=== PATIENT | female | born 1955 | race Caucasian/White ===

== ENCOUNTER 2019-05-12 09:17 | Outpatient (CLI) | payer BC, SELFPAY ==
[2019-05-12 09:43] LABS: Basophils Percent Auto 0.4 % (0.2-1.2); Eosinophils Absolute Auto 0.2 K/mm3 (0-0.3); Eosinophils Percent Auto 4.8 % (0-4.4); Hematocrit 43.9 % (37.0-47.0); Hemoglobin 13.6 g/dL (12.0-15.0); Immature Granulocyte Absolute 0.02 K/mm3 (0.00-0.031); Immature Granulocyte Percent A 0.4 % (0-0.5); Lymphocytes Absolute Auto 1.76 K/mm3 (0.9-3.2); Lymphocytes Percent Auto 36.6 % (18.3-44.2); Mean Corpuscular Hemoglobin 23.2 pg (26-34); Mean Corpuscular Volume 74.8 fl (80-100); Mean Platelet Volume 9.3 fl (7.4-10.4); Monocytes Absolute Auto 0.3 K/mm3 (0.1-0.6); Monocytes Percent Auto 5.6 % (2.6-8.5); Neutrophils Absolute Auto 2.5 K/mm3 (1.3-6.7); Neutrophils Percent Auto 52.2 % (45.5-73.1); Platelet Count Result 286 k/mm3 (150-375); Red Blood Count 5.87 M/mm3 (4.2-5.4); Red Cell Distribution Width 16.6 % (11.5-14.5); White Blood Count 4.8 K/mm3 (4.5-10.0)
[2019-05-12 11:02] LABS: Iron 130 ug/dL (37-170)
[2019-05-12 11:03] LABS: Alanine Aminotransferase 22 U/L (4-35); Albumin Level 4.7 g/dL (3.5-5.1); Alkaline Phosphatase 96 U/L (38-126); Aspartate Amino Transferase 20 U/L (14-36); Bilirubin,Total 0.4 mg/dL (0.2-1.3); Blood Urea Nitrogen 16 mg/dL (7-17); Calcium 9.7 mg/dL (8.4-10.2); Carbon Dioxide 27 mmol/L (22-30); Chloride 101 mmol/L (98-107); Estimated Glomerular Filt Rate > 60; Glucose 101 mg/dL (65-105); Potassium 4.4 mmol/L (3.4-5.0); Sodium 137 mmol/L (137-145)
[2019-05-12 11:11] LABS: Percent Iron Saturation 37 % (20-50)
[2019-05-12 12:08] LABS: Folic Acid 16.3 ng/mL (2.76->20)
== END 2019-05-12 09:18 | disposition home or self-care (01) ==
LOC: ANHLAB 09:19
PROVIDERS: PCP Nurse Practitioner Adult Health; Visit Provider Internal Medicine Hematology & Oncology
DX: D72.1 Eosinophilia (principal); R71.8 Other abnormality of red blood cells; D50.9 Iron deficiency anemia, unspecified
CPT/HCPCS: 36415; 80053; 82607; 82728; 82746; 83540; 83550; 85025

== ENCOUNTER 2020-02-16 08:33 | Outpatient (CLI) | payer BC, SELFPAY ==
[2020-02-16 08:51] LABS: Basophils Percent Auto 0.5 % (0.2-1.2); Eosinophils Absolute Auto 0.2 K/mm3 (0-0.3); Eosinophils Percent Auto 3.6 % (0-4.4); Hematocrit 42.3 % (37.0-47.0); Hemoglobin 13.1 g/dL (12.0-15.0); Immature Granulocyte Absolute 0.01 K/mm3 (0.00-0.031); Immature Granulocyte Percent A 0.2 % (0-0.5); Lymphocytes Absolute Auto 1.76 K/mm3 (0.9-3.2); Lymphocytes Percent Auto 42.3 % (18.3-44.2); Mean Corpuscular Hemoglobin 22.8 pg (26-34); Mean Corpuscular Volume 73.6 fl (80-100); Mean Platelet Volume 9.4 fl (7.4-10.4); Monocytes Absolute Auto 0.3 K/mm3 (0.1-0.6); Monocytes Percent Auto 6.5 % (2.6-8.5); Neutrophils Percent Auto 46.9 % (45.5-73.1); Platelet Count Result 296 k/mm3 (150-375); Red Blood Count 5.75 M/mm3 (4.2-5.4); Red Cell Distribution Width 15.8 % (11.5-14.5); White Blood Count 4.2 K/mm3 (4.5-10.0)
[2020-02-16 12:27] LABS: Anion Gap 8 mmol/L (8-16); Blood Urea Nitrogen 11 mg/dL (7-17); Calcium 9.9 mg/dL (8.4-10.2); Carbon Dioxide 30 mmol/L (22-30); Chloride 100 mmol/L (98-107); Estimated Glomerular Filt Rate > 60; Glucose 101 mg/dL (65-105); Potassium 4.3 mmol/L (3.4-5.0); Sodium 138 mmol/L (137-145)
[2020-02-16 12:28] LABS: Iron 110 ug/dL (37-170)
[2020-02-16 12:38] LABS: Percent Iron Saturation 33 % (20-50)
== END 2020-02-16 08:34 | disposition home or self-care (01) ==
LOC: ANHLAB 08:34
PROVIDERS: PCP Nurse Practitioner Adult Health; Visit Provider Internal Medicine Hematology & Oncology
DX: D50.9 Iron deficiency anemia, unspecified (principal)
CPT/HCPCS: 36415; 80048; 82728; 83540; 83550; 85025

== ENCOUNTER 2021-02-19 08:40 | Outpatient (CLI) | payer BC, MEDICARE, SELFPAY ==
[2021-02-19 09:08] LABS: Basophils Percent Auto 0.4 % (0.2-1.2); Eosinophils Absolute Auto 0.3 K/mm3 (0-0.3); Eosinophils Percent Auto 5.8 % (0-4.4); Hematocrit 42.7 % (37.0-47.0); Hemoglobin 12.9 g/dL (12.0-15.0); Immature Granulocyte Absolute 0.01 K/mm3 (0.00-0.031); Immature Granulocyte Percent A 0.2 % (0-0.5); Lymphocytes Absolute Auto 2.05 K/mm3 (0.9-3.2); Lymphocytes Percent Auto 45.5 % (18.3-44.2); Mean Corpuscular HGB Conc 30.2 g/dl (32-36); Mean Corpuscular Hemoglobin 23.4 pg (26-34); Mean Corpuscular Volume 77.4 fl (80-100); Monocytes Absolute Auto 0.3 K/mm3 (0.1-0.6); Monocytes Percent Auto 7.1 % (2.6-8.5); Neutrophils Absolute Auto 1.9 K/mm3 (1.3-6.7); Platelet Count Result 320 k/mm3 (150-375); Red Blood Count 5.52 M/mm3 (4.2-5.4); Red Cell Distribution Width 15.9 % (11.5-14.5); White Blood Count 4.5 K/mm3 (4.5-10.0)
[2021-02-19 11:12] LABS: Iron 127 ug/dL (37-170)
[2021-02-19 11:24] LABS: Percent Iron Saturation 35 % (20-50)
[2021-02-19 11:25] LABS: Anion Gap 9 mmol/L (8-16); Blood Urea Nitrogen 17 mg/dL (7-17); Calcium 9.5 mg/dL (8.4-10.2); Carbon Dioxide 27 mmol/L (22-30); Chloride 102 mmol/L (98-107); Estimated Glomerular Filt Rate > 60; Glucose 106 mg/dL (65-110); Potassium 4.1 mmol/L (3.4-5.0); Sodium 138 mmol/L (137-145)
== END 2021-02-19 08:41 | disposition home or self-care (01) ==
PROVIDERS: PCP Nurse Practitioner Adult Health; Visit Provider Internal Medicine Hematology & Oncology
DX: D50.9 Iron deficiency anemia, unspecified (principal)
CPT/HCPCS: 36415; 80048; 82728; 83540; 83550; 85025

== ENCOUNTER 2022-09-17 01:55 | Day surgery (SDC) | payer MEDICARE, OTHER, SELFPAY ==
[2022-09-05 11:00] VITALS: BMI 27.9
[2022-09-17 07:28] VITALS: BP 138/69; PULSE 97; RESP 17; TEMP 36.1; O2SAT 99; BMI 27.0
[2022-09-17] MEDS: LACTATED RINGERS 1,000 ML 150 ML IV CONT (07:42)
[2022-09-17 07:44] LABS: Glucose Point of Care 114 mg/dl (65-105)
--- NOTE | 2022-09-17 08:11 | WPDANESEPPF ---
Anes - Initial Pre Proc Eval Procedure: Operation Date: 09/17/22 08:45 Proposed Procedures p Screening Colonoscopy - Mil Whitehead MD Date/Time: 09/17/22 08:11 Surgeon: Mil Whitehead MD Pre Op Diagnosis: neoplasm screening Patient Data Age: 66 Gender: F Height: 1.63 m Weight: 71.4 kg Last Vital Signs Temp 96.9 F L 09/17/22 07:28 Pulse 97 09/17/22 07:28 Resp 17 09/17/22 07:28 BP 138/69 09/17/22 07:28 Pulse Ox 99 09/17/22 07:28 O2 Del Method Room Air 09/17/22 07:28 Allergies Allergy/AdvReac Type Severity Reaction Status Date / Time No Known Allergies Allergy Mild Verified 09/17/22 07:26 Home Medications Medication Instructions Recorded Confirmed Type ezetimibe 10 mg tablet 10 mg PO DAILY 03/19/21 09/17/22 History metformin 500 mg tablet,extended 500 mg PO BID 03/19/21 09/17/22 History release 24 hr icosapent ethyl 1 gram capsule 2 g PO DAILY 09/05/22 09/17/22 History semaglutide 0.25 mg or 0.5 mg (2 0.5 mg subcut WEEKLY 09/05/22 09/17/22 History mg/3 mL) subcutaneous pen injector (Ozempic) Laboratory Tests 09/17/22 07:34 POC Capillary Glucose 114 H mg/dl (65-105) Patient hx anesthesia problems: none Family hx anesthesia problems: none Results Review: All pre-operative results and documents have been reviewed as part of the pre-operative evaluation. 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 Eczema Eczema Encounter for Papanicolaou smear for cervical cancer screening High blood cholesterol High cholesterol History of endometrial biopsy 12/11/11 atrophic endometrium History of endometrial biopsy (12/11/11) ENDOMETRIAL BX- ATROPHIC ENDOMETRIUM History of frequent headaches Normal colonoscopy 2015 Osteopenia Osteopenia Parathyroid disease Parathyroid disease Pneumonia 2007 Screening mammogram, encounter for Surgical History Surgical History H/O colonoscopy (02/17/15) normal History of tonsillectomy (~02/17/1961) Hx of cholecystectomy 2005 Hx of cholecystectomy (~02/17/05) Hx of tonsillectomy 1961 Family History Family History Mother Osteoporosis Breast cancer Sibling Osteoporosis sister Diabetes mellitus sister Pancreatic cancer sister-- Hyperthyroidism sister Sibling Pancreatic cancer sister Hyperthyroidism sister Diabetes mellitus sister Mother Breast cancer Hypertension Social History Social History Smoking status: Never smoker Alcohol intake: current Drinks per week: 3 Substance use: never Substance use type: does not use Living arrangements: with family Additional living arrangements comments: spouse Occupation/Education: retired Gender identity (if verbalized by the patient): Female Sexual Orientation (if Verbalized by the Patient): Straight or Heterosexual Spiritual care concerns: No Anes - Eval Final PreProcedure Day of Procedure 09/17/22 08:11 Patient weight: normal Heart: regular rate and rhythm Lungs: clear to auscultation Airway: Mallampati scale class II Neurological: alert and oriented Last oral intake: >/= 8 hours ASA classification: II Emergent: no Anesthetic plan: proceed Anesthesia type and monitoring: general GIVS and standard monitoring Results Review: All pre-operative results and documents have been reviewed as part of the pre-operative evaluation. Informed Consent: The patient's anesthetic plan and its attendant risks and benefits were discussed with the patient/family/POA. Questions were solicited and answers provided to the satisfaction of the patient/family/POA.
--- NOTE | 2022-09-17 08:17 | PM.HPGS ---
History of Present Illness History of Present Illness Consent: Risks, benefits, and alternatives have been discussed and questions answered. Patient agrees to proceed with procedure. Chief complaint: neoplasm screening Narrative: Sofia García is a 66 year old female Presents for screening colonoscopy. Patient's current weight appetite and bowel movements are normal. Patient denies abdominal pain. She has had no bleeding. Family history is significant both mother and sister have had colon polyps. Patient presents today for surveillance exam. Review of Systems Review of Systems: Review of systems noncontributory. 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 Eczema Eczema Encounter for Papanicolaou smear for cervical cancer screening High blood cholesterol High cholesterol History of endometrial biopsy 12/11/11 atrophic endometrium History of endometrial biopsy (12/11/11) ENDOMETRIAL BX- ATROPHIC ENDOMETRIUM History of frequent headaches Normal colonoscopy 2015 Osteopenia Osteopenia Parathyroid disease Parathyroid disease Pneumonia 2008 Screening mammogram, encounter for Surgical History Surgical History H/O colonoscopy (02/17/15) normal History of tonsillectomy (~02/17/1961) Hx of cholecystectomy 2005 Hx of cholecystectomy (~02/17/05) Hx of tonsillectomy 1961 Family History Family History Mother Osteoporosis Breast cancer Sibling Osteoporosis sister Diabetes mellitus sister Pancreatic cancer sister-- Hyperthyroidism sister Sibling Pancreatic cancer sister Hyperthyroidism sister Diabetes mellitus sister Mother Breast cancer Hypertension Social History Social History Smoking status: Never smoker Alcohol intake: current Drinks per week: 3 Substance use: never Substance use type: does not use Living arrangements: with family Additional living arrangements comments: spouse Occupation/Education: retired Gender identity (if verbalized by the patient): Female Sexual Orientation (if Verbalized by the Patient): Straight or Heterosexual Spiritual care concerns: No Meds Home Medications and Allergies Home Medications Medication Instructions Recorded Confirmed Type ezetimibe 10 mg tablet 10 mg PO DAILY 03/19/21 09/17/22 History metformin 500 mg tablet,extended 500 mg PO BID 03/19/21 09/17/22 History release 24 hr icosapent ethyl 1 gram capsule 2 g PO DAILY 09/05/22 09/17/22 History semaglutide 0.25 mg or 0.5 mg (2 0.5 mg subcut WEEKLY 09/05/22 09/17/22 History mg/3 mL) subcutaneous pen injector (Ozempic) Allergies Allergy/AdvReac Type Severity Reaction Status Date / Time No Known Allergies Allergy Mild Verified 09/17/22 07:26 Vital Signs Vital Signs - 24 hr 09/17/22 07:28 Temperature 96.9 F L Pulse Rate 97 Respiratory Rate 17 Blood Pressure 138/69 Pulse Oximetry 99 Oxygen Delivery Room Air Exam Narrative: Physical exam reveals patient be alert. Vital signs stable. HEENT exam is unremarkable. Patient is anicteric. Lungs are clear to auscultation and percussion. Heart is without murmur or extra sounds. Abdomen bowel sounds are present soft nontender with no organomegaly. Digital external rectal exam is normal. Assessment and Plan Assessment and plan (1) Family history of colonic polyps: Code(s): Z83.71 - Family history of colonic polyps Status: Acute Assessment and Plan: Patient's mother and sister both have had colon polyps. patient presents today for screening colonoscopy advised follow-up colonoscopy at 5-7 year intervals.
[2022-09-17 08:59] VITALS: BP 106/62; PULSE 92; RESP 25; O2SAT 95
[2022-09-17 09:09] VITALS: BP 113/66; PULSE 83; RESP 16; O2SAT 99
[2022-09-17 09:19] VITALS: BP 117/68; PULSE 72; RESP 22; O2SAT 99
== END 2022-09-17 09:22 | disposition home or self-care (01) ==
PROVIDERS: Referring Provider Internal Medicine Endocrinology, Diabetes & Metabolism; Visit Provider Internal Medicine Gastroenterology
PROC: 0DJD8ZZ Inspection of Lower Intestinal Tract, Via Natural or Artificial Opening Endoscopic (ICD-10-PCS; CPT 45378; principal; 2022-09-17 08:45)
DX: Z12.11 Encounter for screening for malignant neoplasm of colon (principal); K64.8 Other hemorrhoids; Z83.71 Family history of colonic polyps; Z79.84 Long term (current) use of oral hypoglycemic drugs; E11.9 Type 2 diabetes mellitus without complications; E78.00 Pure hypercholesterolemia, unspecified; Z79.899 Other long term (current) drug therapy
CPT/HCPCS: G0105; 82948; J2704; J7120

== ENCOUNTER 2023-06-17 14:43 | Outpatient (CLI) | payer MEDICARE, SELFPAY ==
[2023-06-17 19:39] LABS: Alanine Aminotransferase 39 U/L (6-35); Albumin Level 5.1 g/dL (3.5-5.1); Alkaline Phosphatase 81 U/L (38-126); Anion Gap 8 mmol/L (4-12); Aspartate Amino Transferase 59 U/L (14-36); Bilirubin,Total 0.9 mg/dL (0.2-1.3); Blood Urea Nitrogen 19 mg/dL (7-17); Calcium 9.8 mg/dL (8.4-10.2); Carbon Dioxide 25 mmol/L (22-30); Chloride 105 mmol/L (98-107); Cholesterol 292 mg/dL (0-200); Estimated Glomerular Filt Rate > 60; Glucose 92 mg/dL (65-110); HDL Direct 66 mg/dL; Potassium 3.9 mmol/L (3.4-5.0); Sodium 138 mmol/L (137-145); Triglycerides 206 mg/dL (<150)
[2023-06-17 19:50] LABS: LDL Cholesterol Direct 180 mg/dL
[2023-06-17 20:04] LABS: Creatinine Urine 197.8 mg/dL
[2023-06-17 20:09] LABS: MALB Creatinine Ratio 11.5 mg/g (0-30); Microalbumin Urine Random 22.8 mg/L (0-16.7)
[2023-06-17 20:17] LABS: Hemoglobin A1C 5.4 % (<5.7)
== END 2023-06-17 14:44 | disposition home or self-care (01) ==
PROVIDERS: PCP Nurse Practitioner Adult Health; Visit Provider Nurse Practitioner Adult Health
DX: E11.9 Type 2 diabetes mellitus without complications (principal)
CPT/HCPCS: 36415; 80053; 80061; 82043; 82565; 83036

== ENCOUNTER 2023-12-17 11:14 | Outpatient (CLI) | payer OTHER, SELFPAY ==
[2023-12-17 20:32] LABS: Alanine Aminotransferase 22 U/L (6-35); Albumin Level 4.8 g/dL (3.5-5.1); Alkaline Phosphatase 74 U/L (38-126); Anion Gap 8 mmol/L (4-12); Aspartate Amino Transferase 50 U/L (14-36); Bilirubin,Total 0.8 mg/dL (0.2-1.3); Blood Urea Nitrogen 18 mg/dL (7-17); Calcium 9.3 mg/dL (8.4-10.2); Carbon Dioxide 28 mmol/L (22-30); Chloride 101 mmol/L (98-107); Cholesterol 244 mg/dL (0-200); Estimated Glomerular Filt Rate > 60; Glucose 85 mg/dL (65-110); HDL Direct 62 mg/dL; Potassium 4.4 mmol/L (3.4-5.0); Sodium 137 mmol/L (137-145); Triglycerides 172 mg/dL (<150)
[2023-12-17 20:43] LABS: LDL Cholesterol Direct 131 mg/dL
[2023-12-17 20:57] LABS: Hemoglobin A1C 5.7 % (<5.7)
[2023-12-17 21:10] LABS: Creatinine Urine 77.3 mg/dL
[2023-12-17 21:14] LABS: MALB Creatinine Ratio 23.4 mg/g (0-30); Microalbumin Urine Random 18.1 mg/L (0-16.7)
== END 2023-12-17 11:15 | disposition home or self-care (01) ==
LOC: ANHBWCLAB 11:16
PROVIDERS: PCP Nurse Practitioner Adult Health; Visit Provider Nurse Practitioner Adult Health
DX: E11.9 Type 2 diabetes mellitus without complications (principal)
CPT/HCPCS: 36415; 80053; 80061; 82043; 82565; 83036

== ENCOUNTER 2024-06-17 11:26 | Outpatient (CLI) | payer OTHER, SELFPAY ==
[2024-06-17 20:54] LABS: Alanine Aminotransferase 28 U/L (6-35); Albumin Level 4.8 g/dL (3.5-5.1); Alkaline Phosphatase 83 U/L (38-126); Anion Gap 10 mmol/L (4-12); Aspartate Amino Transferase 43 U/L (14-36); Bilirubin,Total 0.9 mg/dL (0.2-1.3); Blood Urea Nitrogen 18 mg/dL (7-17); Calcium 9.5 mg/dL (8.4-10.2); Carbon Dioxide 28 mmol/L (22-30); Chloride 101 mmol/L (98-107); Cholesterol 283 mg/dL (0-200); Estimated Glomerular Filt Rate > 60; Glucose 94 mg/dL (65-110); HDL Direct 57 mg/dL; Potassium 4.5 mmol/L (3.4-5.0); Sodium 139 mmol/L (137-145); Triglycerides 174 mg/dL (<150)
[2024-06-17 21:04] LABS: LDL Cholesterol Direct 162 mg/dL
[2024-06-17 21:34] LABS: Hemoglobin A1C 5.7 % (<5.7)
[2024-06-17 22:21] LABS: Creatinine Urine 32.5 mg/dL
[2024-06-17 22:44] LABS: MALB Creatinine Ratio < 18.5 mg/g (0-30); Microalbumin Urine Random < 6.0 mg/L (0-16.7)
== END 2024-06-17 11:27 | disposition home or self-care (01) ==
LOC: ANHBWCLAB 11:27
PROVIDERS: PCP Nurse Practitioner Adult Health; Visit Provider Nurse Practitioner Adult Health
DX: E11.9 Type 2 diabetes mellitus without complications (principal)
CPT/HCPCS: 36415; 80053; 80061; 82043; 82565; 83036

== ENCOUNTER 2024-06-23 14:46 | Outpatient (CLI) | payer MEDICARE, OTHER, SELFPAY ==
--- NOTE | ~2024-06-23 | MM_ITS ---
EXAMINATION: MM screening luciana BI w davie HISTORY: Screening TECHNIQUE: Craniocaudal and mediolateral oblique 3-D tomosynthesis images were obtained and synthetic 2-D images were generated. CAD analysis was submitted and interpreted. COMPARISON: No prior mammogram is available for comparison at this institution. BREAST PARENCHYMAL COMPOSITION: Dense: The breasts are heterogeneously dense, which may obscure small masses FINDINGS: There is no evidence of suspicious mass, calcification, or architectural distortion to sugg est malignancy in either breast. There has been no suspicious interval change. IMPRESSION: 1. No mammographic evidence of malignancy. 2. Recommend routine screening mammography in one year. BI-RADS Category 1: Negative Reviewed, dictated and finalized at location A.
--- OUTSIDE RECORDS SUMMARY | 2024-06-23 14:51 | XMS_ITS | Continuity of Care Document ---
Author Name [facility] Organization [facility] Care Team Providers Care Electrical Continuity Tester Name Role Phone [facility] Unavailable Unavailable Medications Combined list of outpatient medications from [facility] and [facility] facilities.Medications provided include 1) outpatient medications from the last 15 months, and 2) patient-reported medications. Medication Details Route Status Patient Instructions Prescription Expires Prescription Number Last Dispense Date Ordering Provider Order Date Order Qty Source ICOSAPENT ETHYL (icosapent ethyl), 1 G, CAPSULE, ORAL, Kidos, 120 ea. BOTTLE Active [id number] 2023 360 Pharmac y Data Transac tion Service Facilit y Social History Combined list of available smoking, tobacco, and other social history from Department of Defense and Veterans Affairs facilities. Social History Type Response Date Comment Sourc e This section is an empty social history section. [facility]
--- OUTSIDE RECORDS SUMMARY | 2024-06-23 14:51 | XMS_ITS | Data Portability ---
Author Organization [place] [facility], Main Office Address [address] [place] [address] Assessment No assessment recorded. Plan of Treatment Reminders Order Date Submit Date Provider Last Modified By Organization Details Last Modified Time Details Appointments None recorded. Lab TSH, serum or plasma 2022 023 JOSSELINE Not available 3 16:31:35 T4, free, serum 2022 023 JOSSELINE Not available 3 15:13:16 lipid panel, serum 2022 023 JOSSELINE Not available 3 15:14:13 CMP, serum or plasma 2022 023 JOSSELINE Not available 3 15:13:52 HbA1c (hemoglobin A1c), blood 2022 023 Not available 3 11:47:28 microalbumi n/creatinin e, mass ratio, urine 2022 023 [email or web address] Not available 3 11:47:29 Referral gastroenter ologist referral 2022 023 JOSSELINE Whitehead MD, [address] [facility] [address], [place], [address], 3 09:31:26 Procedures None recorded. Surgeries None recorded. Imaging MAMMO, screening, digital, bilateral 2022 023 JOSSELINE Not available 4 16:08:04 Medication Orders bempedoic acid 180 mg tablet 2022 023 [facility], [address] [place] [address], [address], 3 09:41:33 icosapent ethyl 1 gram capsule 2022 023 [facility], [address] [place] [address], [address], 3 09:42:38 ezetimibe 10 mg tablet 2022 023 [facility], [address] [place] [address], [address], 3 09:42:36 Ozempic 0.25 mg or 0.5 mg (2 mg/3 mL) subcutaneou s pen injector 2022 023 [facility], [address] [place] [address], [address], 3 09:41:33 metformin ER 500 mg tablet,exte nded release 24 hr 2022 023 [facility], [address] [place] [address], [address], 3 09:42:36 icosapent ethyl 1 gram capsule 2022 023 [place] [facility] #[id number], [address] [place], [id number], 3 11:50:07 ezetimibe 10 mg tablet 2022 023 [place] [facility] #[id number], [address] [place], [id number], 3 11:50:05 metformin ER 500 mg tablet,exte nded release 24 hr 2022 023 [place] [facility] #[id number], [address] [place], [id number], 3 11:50:08 Patient TargetsNo targets recorded. Patient InstructionsNo instructions recorded. Reason for Referral [employer] Supervisor Referral for Screening for malignant neoplasm of colon Referring Physician: Kalani Buchanan, Endocrinology, Encounter Date: 07/04/2022 Results Created Date Observation Date Name Description Value Unit Range Abnormal Flag Note LastModifiedBy Organization Detail LastModifiedTime 07/25/19 22 07/24/2021 HEMOG LOBIN A1C HA1C 5.7 % 4.0-6. 0 Diabe janett Scree heather Crite mary: <5.7% Consi stent with absen ce of diabe janett 5.7-6 .4% Consi stent with incre ased risk for diabe janett (pred iabet es) >OR=6 .5% Consi stent with diabe janett REFER ENCE: Diabe janett Care 2016, 39(Isaacs ppl.1 ):s13 -s22 Not Available [facility] (Lab) [address] [place], [address], 07/24/2021 15:29:18 07/25/19 22 07/24/2021 TSH thyroid-stim ulating hormone 1.600 uIU/m L 0.465- 4.680 Not Available [facility] (Lab) [address] [place], [address], 07/24/2021 14:05:37 07/25/19 22 07/24/2021 LIPID PANEL cholesterol 208 mg/dL 140-19 9 high NIH COMFORT NSUS RECOM MENDA TION FOR JONATHAN STERO L: ADULT CHILD LOW RISK: <200 <170 BORDE RLINE : <200- 239 ----- HIGH RISK: >240 >200 Not Available [facility] (Lab) [address] [place], [address], 07/24/2021 14:04:12 07/25/19 22 07/24/2021 LIPID PANEL triglyceride s 170 mg/dL 0-150 high NIH COMFORT NSUS REPOR T RECOM MENDA TION FOR TRIGL YCERI JEFF: ADULT CHILD LOW RISK: <150 ----- BODER LINE: 150-1 99 ----- HIGH RISK: >200 ----- Not Available [facility] (Lab) [address] [place], [address], 07/24/2021 14:04:12 07/25/19 22 07/24/2021 LIPID PANEL HDL cholesterol 54 mg/dL 40- Not Available [facility] (Lab) [address] [place], [address], 07/24/2021 14:04:12 07/25/19 22 07/24/2021 LIPID PANEL LDL cholesterol, calculated 120 mg/dL 0-130 NIH COMFORT NSUS REPOR T RECOM MENDA TIONS FOR LDL: ADULT CHILD LOW RISK <130 <110 (OPTI MAL LDL) <100 ----- BORDE RLINE : 130-1 59 ----- HIGH RISK: >160 >130 A TRIGL YCERI DE RESUL T >400 INVAL IDATE S THE CALCU LATIO N FOR LDL FRACT IONAT ION - THE LDL RESUL T WILL NOT BE REPOR PHUC. Not Available [facility] (Lab) [address] [place], [address], 07/24/2021 14:04:12 07/25/19 22 07/24/2021 COMPR EHENS KAREEM METAB OLIC PANEL chloride 104 mmol/ L 98-107 Not Available [facility] (Lab) [address] [place], [address], 07/24/2021 14:04:09 07/25/19 22 07/24/2021 COMPR EHENS KAREEM METAB OLIC PANEL sodium 138 mmol/ L 137-14 5 Not Available [facility] (Lab) [address] [place], [address], 07/24/2021 14:04:09 07/25/19 22 07/24/2021 COMPR EHENS KAREEM METAB OLIC PANEL potassium 4.0 mmol/ L 3.5-5. 1 Not Available [facility] (Lab) [address] [place], [address], 07/24/2021 14:04:09 07/25/19 22 07/24/2021 COMPR EHENS KAREEM METAB OLIC PANEL BUN 15 mg/dL 8-19 Not Available [facility] (Lab) [address] [place], [address], 07/24/2021 14:04:09 07/25/19 22 07/24/2021 COMPR EHENS KAREEM METAB OLIC PANEL carbon dioxide 27 mmol/ L 22-30 Not Available [facility] (Lab) [address] [place], [address], 07/24/2021 14:04:09 07/25/19 22 07/24/2021 COMPR EHENS KAREEM METAB OLIC PANEL anion gap 11.0 mmol/ L 14-22 low Not Available [facility] (Lab) [address] [place], [address], 07/24/2021 14:04:09 07/25/19 22 07/24/2021 COMPR EHENS KAREEM METAB OLIC PANEL glucose 87 mg/dL 70-99 Not Available [facility] (Lab) [address] [place], [address], 07/24/2021 14:04:09 07/25/19 22 07/24/2021 COMPR EHENS KAREEM METAB OLIC PANEL creatinine 0.73 mg/dL 0.66-1 .25 Not Available [facility] (Lab) [address] [place], [address], 07/24/2021 14:04:09 07/25/19 22 07/24/2021 COMPR EHENS KAREEM METAB OLIC PANEL GFR >60 Refer ence Range : Logan ge GFR Healt hy Adult : >60 mL/mi n/1.7 3 m2 Chron ic Kidne y Disea se: 15-60 mL/mi n/1.7 3 m2 Kidne y Failu re: <15/m L/min /1.73 m2 www.n iddk. nih.g ov The MDRD study equat ion has not been valid ated in child tamie <18 years of age; pregn ant women ; the elder ly >85 years of age; or in some racia l or ethni c subgr oups, such as Hispa nics. Outsi de the valid ated minh eters , estim ated GFR is less accur ate, requi ring clini lane judgm ent on a case- by-ca se basis . Clini lane inter preta tion for other races and ages must be made by the clini julio cesar. The MDRD study equat ion has not been valid ated for the evalu ation of serum creat inine relat ed to nutri marin l statu s or medic ation usage . For perso ns <18 years of age, a pedia tric GFR calcu lator is avail able on the [facility] websi te: https :[email or web address] [email or web address] [email or web address] rg/pr ofess ional s/kdo qi/gf r_cal culat or Not Available [facility] (Lab) [address] [place], [address], 07/24/2021 14:04:09 07/25/19 22 07/24/2021 COMPR EHENS KAREEM METAB OLIC PANEL alkaline phosphatase 60 U/L 38-126 Not Available [facility] (Lab) [address] [place], [address], 07/24/2021 14:04:09 07/25/19 22 07/24/2021 COMPR EHENS KAREEM METAB OLIC PANEL alanine aminotransfe rase 19 U/L 0-35 Not Available [facility] (Lab) [address] [place], [address], 07/24/2021 14:04:09 07/25/19 22 07/24/2021 COMPR EHENS KAREEM METAB OLIC PANEL aspartate aminotransfe rase 23 U/L 15-37 Not Available [facility] (Lab) [address] [facility] [place], [address], 07/24/2021 14:04:09 07/25/19 22 07/24/2021 COMPR EHENS KAREEM METAB OLIC PANEL bilirubin, total 0.60 mg/dL 0.20-1 .30 Not Available [facility] (Lab) [address] [place], [address], 07/24/2021 14:04:09 07/25/19 22 07/24/2021 COMPR EHENS KAREEM METAB OLIC PANEL calcium 9.4 mg/dL 8.4-10 .2 Not Available [facility] (Lab) [address] [place], [address], 07/24/2021 14:04:09 07/25/19 22 07/24/2021 COMPR EHENS KAREEM METAB OLIC PANEL total protein 6.8 g/dL 6.3-8. 2 Not Available [facility] (Lab) [address] [place], [address], 07/24/2021 14:04:09 07/25/19 22 07/24/2021 COMPR EHENS KAREEM METAB OLIC PANEL albumin 4.5 g/dL 3.0-4. 4 high Not Available [facility] (Lab) [address] [place], [address], 07/24/2021 14:04:09 07/25/19 22 07/24/2021 COMPR EHENS KAREEM METAB OLIC PANEL globulin 2.3 g/dL 2.6-4. 2 low Not Available [facility] (Lab) [address] [facility] [place], [address], 07/24/2021 14:04:09 07/25/19 22 07/24/2021 COMPR EHENS KAREEM METAB OLIC PANEL A/G ratio 2.0 ratio 1.0-2. 0 Not Available [facility] (Lab) [address] [place], [address], 07/24/2021 14:04:09 07/25/19 22 07/24/2021 T4 FREE free T4 1.43 NG/dL 0.78-2 .19 Not Available [facility] (Lab) [address] [place], [address], 07/24/2021 14:03:10 07/25/19 22 07/24/2021 MICRO ALBUM N RNDM W/CRE AT RATIO ur creat 241.13 mg/dL REFER ENCE RANGE NOT ESTAB LISHE D FOR RANDO M URINE CREAT ININE Not Available [facility] (Lab) [address] [place], [address], 07/24/2021 13:25:56 07/25/19 22 07/24/2021 MICRO ALBUM N RNDM W/CRE AT RATIO microalbumin , urine 25.5 mg/L 0.0-16 .6 high Not Available [facility] (Lab) [address] [place], [address], 07/24/2021 13:25:56 07/25/19 22 07/24/2021 MICRO ALBUM N RNDM W/CRE AT RATIO microalbumin /creatinine ratio 11 mcg/m g 0-29 THE AMERI CAN DIABE JANETT ASSOC IATIO N DEFIN ES ABNOR MALIT IES IN ALBUM IN EXCRE TION FOLLO WS: CATEG ORY RESUL T (MCG/ MG CREAT ININE ) LUIS ENRIQUE L <30 MICRO ALBUM INURI A 30-[address] ALBUM INURI A > OR = 300 THE ADA RECOM MENDS THAT 2 OF 2 SPECI MENS COLLE CTED WITHI N A 3- TO 6-MON TH PERIO D BE ABNOR MAL BEFOR E CONSI ARIA G A PATIE NT TO HAVE CROSS ED ONE OF THESE DIAGN OSTIC THRES HOLDS . REFER ENCE: DIABE JANETT CARE, VOL. 26: S94-S , 2002 Not Available [facility] (Lab) [address] [place], [address], 07/24/2021 13:25:56 12/15/19 22 12/14/2021 LIPID PANEL LDL cholesterol, calculated 143 mg/dL 0-130 high NIH COMFORT NSUS REPOR T RECOM MENDA TIONS FOR LDL: ADULT CHILD LOW RISK <130 <110 (OPTI MAL LDL) <100 ----- BORDE RLINE : 130-1 59 ----- HIGH RISK: >160 >130 A TRIGL YCERI DE RESUL T >400 INVAL IDATE S THE CALCU LATIO N FOR LDL FRACT IONAT ION - THE LDL RESUL T WILL NOT BE REPOR PHUC. Not Available [facility] (Lab) [address] [place], [address], 12/14/2021 13:20:14 12/15/1912/14/2021 LIPID PANEL cholesterol 229 mg/dL 140-19 9 high NIH COMFORT NSUS RECOM MENDA TION FOR JONATHAN STERO L: ADULT CHILD LOW RISK: <200 <170 BORDE RLINE : <200- 239 ----- HIGH RISK: >240 >200 Not Available [facility] (Lab) [address] [place], [address], 12/14/2021 13:20:14 12/15/1912/14/2021 LIPID PANEL triglyceride s 161 mg/dL 0-150 high NIH COMFORT NSUS REPOR T RECOM MENDA TION FOR TRIGL YCERI JEFF: ADULT CHILD LOW RISK: <150 ----- BODER LINE: 150-1 99 ----- HIGH RISK: >200 ----- Not Available [facility] (Lab) [address] [place], [address], 12/14/2021 13:20:14 12/15/1912/14/2021 LIPID PANEL HDL cholesterol 54 mg/dL 40- Not Available [facility] (Lab) [address] [place], [address], 12/14/2021 13:20:14 12/15/19 22 12/14/2021 HEMOG LOBIN A1C HA1C 5.5 % 4.0-6. 0 Diabe janett Scree heather Crite mary: <5.7% Consi stent with absen ce of diabe janett 5.7-6 .4% Consi stent with incre ased risk for diabe janett (pred iabet es) >OR=6 .5% Consi stent with diabe janett REFER ENCE: Diabe janett Care 2016, 39( ppl.1 ):s13 -s22 Not Available [facility] (Lab) [address] [place], [address], 12/14/2021 14:27:02 12/15/19 22 12/14/2021 TSH thyroid-stim ulating hormone 0.209 uIU/m L 0.465- 4.680 low Not Available [facility] (Lab) [address] [place], [address], 12/14/2021 13:55:03 12/15/1912/14/2021 T4 FREE free T4 1.62 NG/dL 0.78-2 .19 Not Available [facility] (Lab) [address] [place], [address], 12/14/2021 13:37:00 12/15/19 22 12/14/2021 COMPR EHENS KAREEM METAB OLIC PANEL chloride 104 mmol/ L 98-107 Not Available [facility] (Lab) [address] [place], [address], 12/14/2021 13:20:12 12/15/19 22 12/14/2021 COMPR EHENS KAREEM METAB OLIC PANEL sodium 139 mmol/ L 137-14 5 Not Available [facility] (Lab) [address] [place], [address], 12/14/2021 13:20:12 12/15/19 22 12/14/2021 COMPR EHENS KAREEM METAB OLIC PANEL potassium 5.0 mmol/ L 3.5-5. 1 Not Available [facility] (Lab) [address] [place], [address], 12/14/2021 13:20:12 12/15/19 22 12/14/2021 COMPR EHENS KAREEM METAB OLIC PANEL carbon dioxide 31 mmol/ L 22-30 high Not Available [facility] (Lab) [address] [place], [address], 12/14/2021 13:20:12 12/15/19 22 12/14/2021 COMPR EHENS KAREEM METAB OLIC PANEL anion gap 9.0 mmol/ L 14-22 low Not Available [facility] (Lab) [address] [place], [address], 12/14/2021 13:20:12 12/15/19 22 12/14/2021 COMPR EHENS KAREEM METAB OLIC PANEL glucose 87 mg/dL 70-99 Not Available [facility] (Lab) [address] [place], [address], 12/14/2021 13:20:12 12/15/19 22 12/14/2021 COMPR EHENS KAREEM METAB OLIC PANEL BUN 15 mg/dL 8-19 Not Available [facility] (Lab) [address] [place], [address], 12/14/2021 13:20:12 12/15/19 22 12/14/2021 COMPR EHENS KAREEM METAB OLIC PANEL creatinine 0.61 mg/dL 0.66-1 .25 low Not Available [facility] (Lab) [address] [place], [address], 12/14/2021 13:20:12 12/15/19 22 12/14/2021 COMPR EHENS KAREEM METAB OLIC PANEL aspartate aminotransfe rase 20 U/L 15-37 Not Available [facility] (Lab) [address] [place], [address], 12/14/2021 13:20:12 10/28/12/14/2021 COMPR EHENS KAREEM METAB OLIC PANEL GFR >60 Refer ence Range : Logan ge GFR Healt hy Adult : >60 mL/mi n/1.7 3 m2 Chron ic Kidne y Disea se: 15-60 mL/mi n/1.7 3 m2 Kidne y Failu re: <15/m L/min /1.73 m2 www.n iddk. nih.g ov The MDRD study equat ion has not been valid ated in child tamie <18 years of age; pregn ant women ; the elder ly >85 years of age; or in some racia l or ethni c subgr oups, such as Hispa nics. Outsi de the valid ated minh eters , estim ated GFR is less accur ate, requi ring clini lane judgm ent on a case- by-ca se basis . Clini lane inter preta tion for other races and ages must be made by the clini julio cesar. The MDRD study equat ion has not been valid ated for the evalu ation of serum creat inine relat ed to nutri marin l statu s or medic ation usage . For perso ns <18 years of age, a pedia tric GFR calcu lator is avail able on the [facility] websi te: https :[email or web address] [email or web address].bismark [email or web address]/dede luna s/kdo qi/gf r_cal culat or Not Available [facility] (Lab) [address] [place], [address], 12/14/2021 13:20:12 12/15/19 22 12/14/2021 COMPR EHENS KAREEM METAB OLIC PANEL alkaline phosphatase 69 U/L 38-126 Not Available [facility] (Lab) [address] [place], [address], 12/14/2021 13:20:12 12/15/19 22 12/14/2021 COMPR EHENS KAREEM METAB OLIC PANEL alanine aminotransfe rase 18 U/L 0-35 Not Available [facility] (Lab) [address] [place], [address], 12/14/2021 13:20:12 12/15/19 22 12/14/2021 COMPR EHENS KAREEM METAB OLIC PANEL bilirubin, total 0.70 mg/dL 0.20-1 .30 Not Available [facility] (Lab) [address] [place], [address], 12/14/2021 13:20:12 12/15/19 22 12/14/2021 COMPR EHENS KAREEM METAB OLIC PANEL calcium 9.5 mg/dL 8.4-10 .2 Not Available [facility] (Lab) [address] [place], [address], 12/14/2021 13:20:12 12/15/19 22 12/14/2021 COMPR EHENS KAREEM METAB OLIC PANEL total protein 7.0 g/dL 6.3-8. 2 Not Available [facility] (Lab) [address] [place], [address], 12/14/2021 13:20:12 12/15/19 22 12/14/2021 COMPR EHENS KAREEM METAB OLIC PANEL albumin 4.5 g/dL 3.0-4. 4 high Not Available [facility] (Lab) [address] [place], [address], 12/14/2021 13:20:12 12/15/19 22 12/14/2021 COMPR EHENS KAREEM METAB OLIC PANEL globulin 2.5 g/dL 2.6-4. 2 low Not Available [facility] (Lab) [address] [place], [address], 12/14/2021 13:20:12 12/15/19 22 12/14/2021 COMPR EHENS KAREEM METAB OLIC PANEL A/G ratio 1.8 ratio 1.0-2. 0 Not Available [facility] (Lab) [address] [place], [address], 12/14/2021 13:20:12 12/15/19 22 12/14/2021 MICRO ALBUM N RNDM W/CRE AT RATIO ur creat 117.09 mg/dL REFER ENCE RANGE NOT ESTAB LISHE D FOR RANDO M URINE CREAT ININE Not Available [facility] (Lab) [address] [place], [address], 12/14/2021 13:13:33 12/15/19 22 12/14/2021 MICRO ALBUM N RNDM W/CRE AT RATIO microalbumin , urine 9.0 mg/L 0.0-16 .6 Not Available [facility] (Lab) [address] [place], [address], 12/14/2021 13:13:33 12/15/19 22 12/14/2021 MICRO ALBUM N RNDM W/CRE AT RATIO microalbumin /creatinine ratio 8 mcg/m g 0-29 THE AMERI CAN DIABE JANETT ASSOC IATIO N DEFIN ES ABNOR MALIT IES IN ALBUM IN EXCRE TION FOLLO WS: CATEG ORY RESUL T (MCG/ MG CREAT ININE ) LUIS ENRIQUE L <30 MICRO ALBUM INURI A 30-[address] ALBUM INURI A > OR = 300 THE ADA RECOM MENDS THAT 2 OF 2 SPECI MENS COLLE CTED WITHI N A 3- TO 6-MON TH PERIO D BE ABNOR MAL BEFOR E CONSI ARIA G A PATIE NT TO HAVE CROSS ED ONE OF THESE DIAGN OSTIC THRES HOLDS . REFER ENCE: DIABE JANETT CARE, VOL. 26: S94-S 96, FEBUA 2002 Not Available [facility] (Lab) [address] [place], [address], 12/14/2021 13:13:33 01/26/20 22 01/31/2022 IODIN E, SERUM /PLAS MA iodine, serum/plasma 1026.7 ug/L 40.0-9 2.0 high Limit of quant itati on = 20 Perfo rmed at: [facility] [place] [address] [facility] , [place] [address] Lab Direc tor: Susie wren MD, Phone : [phone] Not Available [facility] (Lab) [address] [place], [address], 01/31/2022 10:11:34 01/26/20 22 01/29/2022 THYRO ID STIM IMMUN OGLOB ULIN thyroid stim immunoglobul in <0.10 IU/L 0.00-0 .55 Perfo rmed at: - [facility] [address] [address] Lab Direc tor: Susie wren MD, Phone : [phone] Not Available [facility] (Lab) [address] [place], [address], 01/29/2022 15:09:24 01/26/20 22 01/27/2022 THYRO ID PEROX IDASE (TPO) AB thyroid peroxidase (tpo) Ab 13 IU/mL 0-34 Perfo rmed at: - [facility] [address] [id number] Lab Direc tor: Jhonny dixon PhD, Phone : [phone] Not Available [facility] (Lab) [address] [place], [address], 01/27/2022 06:40:48 01/26/20 22 01/25/2022 TSH thyroid-stim ulating hormone 1.060 uIU/m L 0.465- 4.680 Not Available [facility] (Lab) [address] [place], [address], 01/25/2022 19:38:35 01/26/20 22 01/25/2022 T4 FREE free T4 1.32 NG/dL 0.78-2 .19 Not Available [facility] (Lab) [address] [place], [address], 01/25/2022 19:13:05 06/25/19 23 06/24/2022 MICRO ALBUM N RNDM W/CRE AT RATIO ur creat 50.65 mg/dL REFER ENCE RANGE NOT ESTAB LISHE D FOR RANDO M URINE CREAT ININE Not Available [facility] (Lab) [address] [place], [address], 06/24/2022 12:43:29 06/25/19 23 06/24/2022 MICRO ALBUM N RNDM W/CRE AT RATIO microalbumin , urine <6.0 mg/L 0.0-16 .6 Not Available [facility] (Lab) [address] [place], [address], 06/24/2022 12:43:29 06/25/19 23 06/24/2022 COMPR EHENS KAREEM METAB OLIC PANEL sodium 137 mmol/ L 137-14 5 Not Available [facility] (Lab) [address] [place], [address], 06/24/2022 12:35:23 06/25/19 23 06/24/2022 COMPR EHENS KAREEM METAB OLIC PANEL potassium 4.2 mmol/ L 3.5-5. 1 Not Available [facility] (Lab) [address] [place], [address], 06/24/2022 12:35:23 06/25/19 23 06/24/2022 COMPR EHENS KAREEM METAB OLIC PANEL chloride 103 mmol/ L 98-107 Not Available [facility] (Lab) [address] [place], [address], 06/24/2022 12:35:23 06/25/19 23 06/24/2022 COMPR EHENS KAREEM METAB OLIC PANEL carbon dioxide 24 mmol/ L 22-30 Not Available [facility] (Lab) [address] [place], [address], 06/24/2022 12:35:23 06/25/19 23 06/24/2022 COMPR EHENS KAREEM METAB OLIC PANEL anion gap 14.2 mmol/ L 14-22 Not Available [facility] (Lab) [address] [place], [address], 06/24/2022 12:35:23 06/25/1906/24/2022 COMPR EHENS KAREEM METAB OLIC PANEL glucose 90 mg/dL 70-99 Not Available [facility] (Lab) [address] [place], [address], 06/24/2022 12:35:23 06/25/1906/24/2022 COMPR EHENS KAREEM METAB OLIC PANEL BUN 12 mg/dL 8-19 Not Available [facility] (Lab) [address] [place], [address], 06/24/2022 12:35:23 06/25/1906/24/2022 COMPR EHENS KAREEM METAB OLIC PANEL creatinine 0.63 mg/dL 0.66-1 .25 low Not Available [facility] (Lab) [address] [place], [address], 06/24/2022 12:35:23 06/25/1906/24/2022 COMPR EHENS KAREEM METAB OLIC PANEL GFR >60 Refer ence Range : Logan ge GFR Healt hy Adult : >60 mL/mi n/1.7 3 m2 Chron ic Kidne y Disea se: 15-60 mL/mi n/1.7 3 m2 Kidne y Failu re: <15/m L/min /1.73 m2 www.n iddk. nih.g ov The MDRD study equat ion has not been valid ated in child tamie <18 years of age; pregn ant women ; the elder ly >85 years of age; or in some racia l or ethni c subgr oups, such as Hispa nics. Outsi de the valid ated minh eters , estim ated GFR is less accur ate, requi ring clini lane judgm ent on a case- by-ca se basis . Clini lane inter preta tion for other races and ages must be made by the clini julio cesar. The MDRD study equat ion has not been valid ated for the evalu ation of serum creat inine relat ed to nutri marin l statu s or medic ation usage . For perso ns <18 years of age, a pedia tric GFR calcu lator is avail able on the [facility] websi te: https :[email or web address] w.[email or web address] [email or web address] rg/pr ofess ional s/kdo qi/gf r_cal culat or Not Available [facility] (Lab) [address] [place], [address], 06/24/2022 12:35:23 06/25/19 23 06/24/2022 COMPR EHENS KAREEM METAB OLIC PANEL alkaline phosphatase 114 U/L 38-126 Not Available [facility] (Lab) [address] [place], [address], 06/24/2022 12:35:23 06/25/19 23 06/24/2022 COMPR EHENS KAREEM METAB OLIC PANEL alanine aminotransfe rase 23 U/L 0-35 Not Available [facility] (Lab) [address] [place], [address], 06/24/2022 12:35:23 06/25/19 23 06/24/2022 COMPR EHENS KAREEM METAB OLIC PANEL aspartate aminotransfe rase 37 U/L 15-37 Not Available [facility] (Lab) [address] [place], [address], 06/24/2022 12:35:23 06/25/19 23 06/24/2022 COMPR EHENS KAREEM METAB OLIC PANEL bilirubin, total 0.80 mg/dL 0.20-1 .30 Not Available [facility] (Lab) [address] [place], [address], 06/24/2022 12:35:23 06/25/19 23 06/24/2022 COMPR EHENS KAREEM METAB OLIC PANEL calcium 9.2 mg/dL 8.4-10 .2 Not Available [facility] (Lab) [address] [place], [address], 06/24/2022 12:35:23 06/25/1906/24/2022 COMPR EHENS KAREEM METAB OLIC PANEL total protein 6.7 g/dL 6.3-8. 2 Not Available [facility] (Lab) [address] [place], [address], 06/24/2022 12:35:23 06/25/19 23 06/24/2022 COMPR EHENS KAREEM METAB OLIC PANEL albumin 4.3 g/dL 3.0-4. 4 Not Available [facility] (Lab) [address] [place], [address], 06/24/2022 12:35:23 06/25/19 23 06/24/2022 COMPR EHENS KAREEM METAB OLIC PANEL globulin 2.4 g/dL 2.6-4. 2 low Not Available [facility] (Lab) [address] [place], [address], 06/24/2022 12:35:23 06/25/1906/24/2022 COMPR EHENS KAREEM METAB OLIC PANEL A/G ratio 1.8 ratio 1.0-2. 0 Not Available [facility] (Lab) [address] [place], [address], 06/24/2022 12:35:23 06/25/1906/24/2022 LIPID PANEL cholesterol 225 mg/dL 140-19 9 high NIH COMFORT NSUS RECOM MENDA TION FOR JONATHAN STERO L: ADULT CHILD LOW RISK: <200 <170 BORDE RLINE : <200- 239 ----- HIGH RISK: >240 >200 Not Available [facility] (Lab) [address] [place], [address], 06/24/2022 12:35:26 06/25/19 23 06/24/2022 LIPID PANEL triglyceride s 231 mg/dL 0-150 high NIH COMFORT NSUS REPOR T RECOM MENDA TION FOR TRIGL YCERI JEFF: ADULT CHILD LOW RISK: <150 ----- BODER LINE: 150-1 99 ----- HIGH RISK: >200 ----- Not Available [facility] [facility] ([facility] [address] [place], [address], 06/24/2022 12:35:26 06/25/1906/24/2022 LIPID PANEL HDL cholesterol 56 mg/dL 40- Not Available [facility] (Lab) [address] [place], [address], 06/24/2022 12:35:26 06/25/1906/24/2022 LIPID PANEL LDL cholesterol, calculated 123 mg/dL 0-130 NIH COMFORT NSUS REPOR T RECOM MENDA TIONS FOR LDL: ADULT CHILD LOW RISK <130 <110 (OPTI MAL LDL) <100 ----- JACQUI RLINE : 130-1 59 ----- HIGH RISK: >160 >130 A TRIGL YCERI DE RESUL T >400 INVAL IDATE S THE CALCU LATIO N FOR LDL FRACT IONAT ION - THE LDL RESUL T WILL NOT BE REPOR PHUC. Not Available [facility] (Lab) [address] [place], [address], 06/24/2022 12:35:26 06/25/1906/24/2022 HEMOG LOBIN A1C HA1C 5.9 % 4.0-6. 0 Diabe janett Scree heather Crite mary: <5.7% Consi stent with absen ce of diabe janett 5.7-6 .4% Consi stent with incre ased risk for diabe janett (pred iabet es) >OR=6 .5% Consi stent with diabe janett REFER ENCE: Diabe janett Care 2016, 39(Isaacs ppl.1 ):s13 -s22 Not Available [facility] (Lab) [address] [place], [address], 06/24/2022 14:43:08 10/31/1910/30/2022 HEMOG LOBIN A1C HA1C 5.7 % 4.0-6. 0 Diabe janett Fredericke heather Crite mary: <5.7% Consi stent with absen ce of diabe janett 5.7-6 .4% Consi stent with incre ased risk for diabe janett (pred iabet es) >OR=6 .5% Consi stent with diabe janett REFER ENCE: Diabe janett Care 2016, 39(Isaacs ppl.1 ):s13 -s22 Not Available [facility] (Lab) [address] [place], [address], 10/30/2022 14:17:53 10/31/1910/30/2022 MICRO ALBUM N RNDM W/CRE AT RATIO ur creat 182.24 mg/dL REFER ENCE RANGE NOT ESTAB LISHE D FOR RANDO M URINE CREAT ININE Not Available [facility] (Lab) [address] [place], [address], 10/30/2022 14:40:17 10/31/19 23 10/30/2022 MICRO ALBUM N RNDM W/CRE AT RATIO microalbumin , urine 16.1 mg/L 0.0-16 .6 Not Available [facility] (Lab) [address] [place], [address], 10/30/2022 14:40:17 10/31/1910/30/2022 MICRO ALBUM N RNDM W/CRE AT RATIO microalbumin /creatinine ratio 9 mcg/m g 0-29 THE AMERI CAN DIABE JANETT ASSOC IATIO N DEFIN ES ABNOR MALIT IES IN ALBUM IN EXCRE TION FOLLO WS: CATEG ORY RESUL T (MCG/ MG CREAT ININE ) LUIS ENRIQUE L <30 MICRO ALBUM INURI A 30-[address] ALBUM INURI A > OR = 300 THE ADA RECOM MENDS THAT 2 OF 2 SPECI MENS COLLE CTED WITHI N A 3- TO 6-MON TH PERIO D BE ABNOR MAL BEFOR E CONSI ARIA G A PATIE NT TO HAVE CROSS ED ONE OF THESE DIAGN OSTIC THRES HOLDS . REFER ENCE: DIABE JANETT CARE, VOL. 26: S94-S 96, JORDON RY 2002 Not Available [facility] (Lab) [address] [place], [address], 10/30/2022 14:40:17 10/31/19 23 10/30/2022 T4 FREE free T4 1.40 NG/dL 0.78-2 .19 Not Available [facility] (Lab) [address] [place], [address], 10/30/2022 15:13:16 10/31/19 23 10/30/2022 COMPR EHENS KAREEM METAB OLIC PANEL sodium 138 mmol/ L 137-14 5 Not Available [facility] (Lab) [address] [place], [address], 10/30/2022 15:13:52 10/31/19 23 10/30/2022 COMPR EHENS KAREEM METAB OLIC PANEL potassium 4.5 mmol/ L 3.5-5. 1 Not Available [facility] (Lab) [address] [place], [address], 10/30/2022 15:13:52 10/31/19 23 10/30/2022 COMPR EHENS KAREEM METAB OLIC PANEL chloride 103 mmol/ L 98-107 Not Available [facility] (Lab) [address] [place], [address], 10/30/2022 15:13:52 10/31/19 23 10/30/2022 COMPR EHENS KAREEM METAB OLIC PANEL carbon dioxide 29 mmol/ L 22-30 Not Available [facility] (Lab) [address] [place], [address], 10/30/2022 15:13:52 10/31/19 23 10/30/2022 COMPR EHENS KAREEM METAB OLIC PANEL anion gap 10.5 mmol/ L 14-22 low Not Available [facility] (Lab) [address] [place], [address], 10/30/2022 15:13:52 10/31/19 23 10/30/2022 COMPR EHENS KAREEM METAB OLIC PANEL glucose 97 mg/dL 70-99 Not Available [facility] (Lab) [address] [place], [address], 10/30/2022 15:13:52 10/31/19 23 10/30/2022 COMPR EHENS KAREEM METAB OLIC PANEL BUN 13 mg/dL 8-19 Not Available [facility] (Lab) [address] [place], [address], 10/30/2022 15:13:52 10/31/19 23 10/30/2022 COMPR EHENS KAREEM METAB OLIC PANEL creatinine 0.75 mg/dL 0.66-1 .25 Not Available [facility] (Lab) [address] [place], [address], 10/30/2022 15:13:52 10/31/19 23 10/30/2022 COMPR EHENS KAREEM METAB OLIC PANEL GFR >60 Refer ence Range : Logan ge GFR Healt hy Adult : >60 mL/mi n/1.7 3 m2 Chron ic Kidne y Disea se: 15-60 mL/mi n/1.7 3 m2 Kidne y Failu re: <15/m L/min /1.73 m2 www.n iddk. nih.g ov The MDRD study equat ion has not been valid ated in child tamie <18 years of age; pregn ant women ; the elder ly >85 years of age; or in some racia l or ethni c subgr oups, such as Hispa nics. Outsi de the valid ated minh eters , estim ated GFR is less accur ate, requi ring clini lane judgm ent on a case- by-ca se basis . Clini lane inter preta tion for other races and ages must be made by the clini julio cesar. The MDRD study equat ion has not been valid ated for the evalu ation of serum creat inine relat ed to nutri marin l statu s or medic ation usage . For perso ns <18 years of age, a pedia tric GFR calcu lator is avail able on the [facility] websi te: https :[email or web address] almanzar.o tino/pr ofess ional s/kdo qi/gf r_cal culat or Not Available [facility] (Lab) [address] [place], [address], 10/30/2022 15:13:52 10/31/19 23 10/30/2022 COMPR EHENS KAREEM METAB OLIC PANEL alkaline phosphatase 74 U/L 38-126 Not Available [facility] (Lab) [address] [place], [address], 10/30/2022 15:13:52 10/31/19 23 10/30/2022 COMPR EHENS KAREEM METAB OLIC PANEL alanine aminotransfe rase 22 U/L 0-35 Not Available [facility] (Lab) [address] [place], [address], 10/30/2022 15:13:52 10/31/19 23 10/30/2022 COMPR EHENS KAREEM METAB OLIC PANEL aspartate aminotransfe rase 22 U/L 15-37 Not Available [facility] (Lab) [address] [place], [address], 10/30/2022 15:13:52 10/31/19 23 10/30/2022 COMPR EHENS KAREEM METAB OLIC PANEL bilirubin, total 0.70 mg/dL 0.20-1 .30 Not Available [facility] (Lab) [address] [place], [address], 10/30/2022 15:13:52 10/31/19 23 10/30/2022 COMPR EHENS KAREEM METAB OLIC PANEL calcium 9.8 mg/dL 8.4-10 .2 Not Available [facility] (Lab) [address] [place], [address], 10/30/2022 15:13:52 10/31/19 23 10/30/2022 COMPR EHENS KAREEM METAB OLIC PANEL total protein 7.3 g/dL 6.3-8. 2 Not Available [facility] (Lab) [address] [place], [address], 10/30/2022 15:13:52 10/31/19 23 10/30/2022 COMPR EHENS KAREEM METAB OLIC PANEL albumin 4.6 g/dL 3.0-4. 4 high Not Available [facility] (Lab) [address] [place], [address], 10/30/2022 15:13:52 10/31/19 23 10/30/2022 COMPR EHENS KAREEM METAB OLIC PANEL globulin 2.7 g/dL 2.6-4. 2 Not Available [facility] (Lab) [address] [place], [address], 10/30/2022 15:13:52 10/31/19 23 10/30/2022 COMPR EHENS KAREEM METAB OLIC PANEL A/G ratio 1.7 ratio 1.0-2. 0 Not Available [facility] (Lab) [address] [place], [address], 10/30/2022 15:13:52 10/31/19 23 10/30/2022 LIPID PANEL cholesterol 234 mg/dL 140-19 9 high NIH COMFORT NSUS RECOM MENDA TION FOR JONATHAN STERO L: ADULT CHILD LOW RISK: <200 <170 BORDE RLINE : <200- 239 ----- HIGH RISK: >240 >200 Not Available [facility] (Lab) [address] [place], [address], 10/30/2022 15:14:13 10/31/19 23 10/30/2022 LIPID PANEL triglyceride s 173 mg/dL 0-150 high NIH COMFORT NSUS REPOR T RECOM MENDA TION FOR TRIGL YCERI JEFF: ADULT CHILD LOW RISK: <150 ----- BODER LINE: 150-1 99 ----- HIGH RISK: >200 ----- Not Available [facility] (Lab) [address] [place], [address], 10/30/2022 15:14:13 10/31/19 23 10/30/2022 LIPID PANEL HDL cholesterol 55 mg/dL 40- Not Available [facility] (Lab) [address] [place], [address], 10/30/2022 15:14:13 10/31/19 23 10/30/2022 LIPID PANEL LDL cholesterol, calculated 144 mg/dL 0-130 high NIH COMFORT NSUS REPOR T RECOM MENDA TIONS FOR LDL: ADULT CHILD LOW RISK <130 <110 (OPTI MAL LDL) <100 ----- BORDE RLINE : 130-1 59 ----- HIGH RISK: >160 >130 A TRIGL YCERI DE RESUL T >400 INVAL IDATE S THE CALCU LATIO N FOR LDL FRACT IONAT ION - THE LDL RESUL T WILL NOT BE REPOR PHUC. Not Available [facility] (Lab) [address] [place], [address], 10/30/2022 15:14:13 10/31/19 23 10/30/2022 TSH thyroid-stim ulating hormone 0.317 uIU/m L 0.465- 4.680 low Not Available [facility] (Lab) [address] [place], [address], 10/30/2022 16:31:34 Result Notes None recorded. Problems Name Problem SNOMED Code Status Onset Date Resolution Date Notes Provider Name and Address Organization Details Recorded Time Glucose level outside reference range 981533529 Completed Not Available [facility] 3 02:48:26 Hyperkalem ia 51892506 Completed Not Available [facility] 3 02:48:26 Anal finding 210067209 Completed Not Available [facility] 3 02:48:26 Breasts asymmetric al 600520806 Completed Not Available [facility] 3 02:48:26 Osteopenia 266856953 Active Not Available [facility] 3 02:48:26 Ulcer of genital labium 283323248 Completed Not Available [facility] 3 02:48:26 Eczema 96358451 Active Not Available [facility] 3 02:48:26 Candidiasi s of skin 98495541 Completed Not Available [facility] 3 02:48:27 Upper respirator y infection 71252454 Completed Not Available [facility] 3 02:48:27 Hyperlipid emia 92968177 Active Not Available [facility] 3 02:48:27 Bleeding from anus 7684884 Completed Not Available [facility] 3 02:48:27 Hemorrhoid s 68003453 Active Not Available [facility] 3 02:48:27 Candidiasi s of vagina 07438868 Completed Not Available [facility] 3 02:48:27 Disorder of parathyroi d gland 27007916 Active 2018 Not Available [facility] 3 02:48:27 Diabetes mellitus 17995534 Active 2017 Not Available [facility] 3 02:48:27 Hyperglyce rony 74646055 Active Not Available [facility] 3 02:48:27 Well controlled type 2 diabetes mellitus 822768506 Active 2022 Kalani Buchanan MD [address], [address] , [facility] [employer] [facility] 3 11:45:30 Mixed hyperlipid emia 362670105 Active 2022 Kalani Buchanan MD [address] [address], [place], [address] , [facility] [employer] [facility] 3 11:46:20 Uncontroll ed type 2 diabetes mellitus 687474123 Active 2022 GUI Suarez, [facility] [employer] [facility] 3 16:44:47 Problem Notes None recorded. Procedures Surgical History Date Name Laterality Status Provider Name and Address Organization Details Recorded Time cholecystectomy completed Not Available [facility] 04/17/2022 02:42:54 Tonsillectomy completed Not Available [facility] 04/17/2022 02:42:54 Imaging Results None recorded. Procedure Notes None recorded. Medical Equipment None Reported. Allergies No known drug allergies Medications Name Sig Start Date Stop Date Status Note LastModified by Organization Details LastModified Time Singulair 10 mg tablet Take 1 tablet every day by oral route in the evening for 30 days. 01/01 completed Not Available Not Available Not Available cyclobenzap rine 10 mg tablet TK 1 T PO TID PRF MSP 12/30 completed Not Available Not Available Not Available metformin 500 mg tablet TK 1 T PO D active Not Available Not Available No t Available Vytone 1 %-1 % topical cream Apply 1 applicati on twice a day by topical route for 14 days. active Not Available Not Available No t Available Anusol-HC 2.5 % rectal cream with applicator Insert by rectal route as needed. active Not Available Not Available No t Available azithromyci n 250 mg tablet 4 tabs all at once 09/09 completed Not Available Not Available Not Available fluconazole 200 mg tablet TK 1 T PO QD active Not Available Not Available No t Available simvastatin 10 mg tablet Take 1 tablet every day by oral route for 30 days. active Not Available Not Available No t Available clobetasol 0.05 % topical cream active Not Available Not Available Not Available peg-electro lyte solution 420 gram oral solution active Not Available Not Available Not Available amoxicillin 875 mg tablet TK 1 T PO Q 12 HOURS WITH MEALS FOR 10 DAYS active Not Available Not Available No t Available OneTouch Ultra Test strips USE TO TEST BLOOD SUGARS TWICE DAILY BEFORE MEALS active Not Available Not Available No t Available imiquimod 5 % topical cream packet 11/03 completed Not Available Not Available Not Available Proctozone- HC 2.5 % topical cream perineal applicator INSERT BY RECTAL ROUTE PRN UTD active Not Available Not Available No t Available tacrolimus 0.1 % topical ointment active Not Available Not Available Not Available clobetasol 0.05 % topical foam active Not Available Not Available Not Available fluticasone propionate 50 mcg/actuati on nasal spray,suspe nsion SPRAY TWICE IEN QAM FOR 30 DAYS active Not Available Not Available No t Available metformin ER 500 mg tablet,exte nded release 24 hr active Not Available Not Available Not Available colestipol 1 gram tablet TK 2 TS PO BID B MEALS active Not Available Not Available No t Available naproxen 500 mg tablet 09/09 completed Not Available Not Available Not Available amoxicillin 875 mg-potassiu m clavulanate 125 mg tablet TK 1 T PO Q 12 H FOR 10 DAYS 03/09 completed Not Available Not Available Not Available ezetimibe 10 mg tablet take one tablet daily at bedtime 2022 active Not Available Not Available Not Avai lable rosuvastati n 5 mg tablet TAKE 1 TABLET TWICE WEEKLY BY MOUTH 10/29 completed Not Available Not Available Not Available rosuvastati n 10 mg tablet Take 1 tablet every day by oral route for 30 days. 12/30 completed Not Available Not Available Not Available clobetasol- emollient 0.05 % topical foam active Not Available Not Available Not Available Cholestyram ine Light 4 gram oral powder TK 1 SCOOP AND MIX WITH LIQUID AND DRINK PO QD 03/03 completed Not Available Not Available Not Available sodium,pota ssium,mag sulfates 17.5 gram-3.13 gram-1.6 gram oral soln MIX AND DRINK DIRECTED active Not Available Not Available No t Available Aurstat 96.53 %-3 %-0.4 %-0.066 % topical kit,cream and gel active Not Available Not Available Not Available icosapent ethyl 1 gram capsule Take 2 capsules twice daily 2022 active Not Available Not Available Not Avai lable Topicort 0.25 % topical spray active PRN Not Available Not Available Not Available Vytone 1.9 %-1 % topical cream packet APPLY TOPICALLY BID FOR 14 DAYS active Not Available Not Available No t Available Virtussin AC 10 mg-100 mg/5 mL oral liquid 09/09 completed Not Available Not Available Not Available HPR Plus Hydrogel topical kit,cream and gel 03/04 completed Not Available Not Available Not Available Praluent Pen 75 mg/mL subcutaneou s pen injector Inject 1 mL every 2 weeks by subcutane ous route in the evening for 90 days. 03/13 completed Not Available Not Available Not Available Repatha SureClick 140 mg/mL subcutaneou s pen injector ADMINISTE R 1 ML UNDER THE SKIN EVERY 2 WEEKS IN THE MORNING 02/06 completed Not Available Not Available Not Available Shingrix (PF) 50 mcg/0.5 mL intramuscul ar suspension, kit 11/07 completed Not Available Not Available Not Available Ozempic 0.25 mg or 0.5 mg (2 mg/1.5 mL) subcutaneou s pen injector 11/15 completed Not Available Not Available Not Available OneTouch Ultra Blue Test Strip TEST TWICE DAILY BEFORE MEALS active Not Available Not Available No t Available Rybelsus 7 mg tablet Take 1 tablet every day by oral route in the morning for 90 days. 08/06 completed Not Available Not Available Not Available Nexletol 180 mg tablet active Not Available Not Available Not Available Ozempic 0.25 mg or 0.5 mg (2 mg/3 mL) subcutaneou s pen injector Inject 0.5 mg every week by subcutane ous route as directed for 84 days. 2022 active Not Available Not Available Not Avai lable Vitals Date Recorded Body height Body mass index (BMI) Body weight Body temperature Heart rate Systolic blood pressure Diastolic blood pressure Provider Name and Address Organization Details Last Updated DateTime 3 161.925 cm 27.9 kg/m2 29255.8 1 g 97.6 [degF] 90 /min 142 mm[Hg] 87 mm[Hg] GUI Calzada [facility] [employer] 3 11:30:59 Date Recorded Body height Body mass index (BMI) Body weight Body temperature Respiratory rate Heart rate Systolic blood pressure Diastolic blood pressure Provider Name and Address Organization Details Last Updated DateTime 3 161.925 cm 28.2 kg/m2 56381.5 6 g 97.8 [degF] 14 /min 85 /min 125 mm[Hg] 72 mm[Hg] Viviana Mcwilliams RN [facility] [employer] [facility] 3 09:07:28 Date Recorded Body mass index (BMI) Body height Oxygen saturation Oxygen saturation in Arterial blood by Pulse oximetry Heart rate Body temperature Body weight Systolic blood pressure Diastolic blood pressure Provider Name and Address Organization Details Last Updated DateTime 2 26.6 kg/m2 161.925 cm 98 % 98 % 92 /min 97.8 [degF] 88375.2 2 g 120 mm[Hg] 80 mm[Hg] Not Available [facility] 3 02:45:52 Date Recorded Body mass index (BMI) Body height Oxygen saturation Oxygen saturation in Arterial blood by Pulse oximetry Heart rate Body temperature Body weight Systolic blood pressure Diastolic blood pressure Provider Name and Address Organization Details Last Updated DateTime 2 26.8 kg/m2 161.925 cm 99 % 99 % 86 /min 96.4 [degF] 64119.8 2 g 122 mm[Hg] 80 mm[Hg] Not Available [facility] 3 02:45:53 Date Recorded Body mass index (BMI) Body height Oxygen saturation Oxygen saturation in Arterial blood by Pulse oximetry Heart rate Body temperature Body weight Systolic blood pressure Diastolic blood pressure Provider Name and Address Organization Details Last Updated DateTime 2 26.3 kg/m2 161.925 cm 97 % 97 % 85 /min 97.9 [degF] 10926.0 4 g 110 mm[Hg] 75 mm[Hg] Not Available [facility] 3 02:45:53 Social History Question Answer Notes LastModified by [employer] ion Details LastModified Time Tobacco Smoking Status Never Smoker Not Available [facility] 04/17/2022 02:35:48 What Is Your Level Of Alcohol Consumption? Moderate [id number] Information not available 04/17/2022 What Is Your Level Of Caffeine Consumption? Moderate [id number] Information not available 04/17/2022 How Much Tobacco Do You Chew? None [id number] Information not available 04/17/2022 In The 14 Days Before Symptom Onset, Have You Had Close Contact With A Laboratory-confir med COVID-19 While That Case Was Ill? No [id number] Information not available 04/17/2022 In The 14 Days Before Symptom Onset, Have You Had Close Contact With A Person Who Is Under Investigation For COVID-19 While That Person Was Ill? No [id number] Information not available 04/17/2022 Which Illicit Or Recreational Drugs Have You Used? None [id number] Information not available 04/17/2022 Do You Or Have You Ever Used E-cigarettes Or Vape? Never Used Electronic Cigarettes [id number] Information not available 04/17/2022 What Is Your Occupation? Retired [id number] Information not available 04/17/2022 Are You Passively Exposed To Smoke? Yes [id number] Information not available 04/17/2022 Do You Or Have You Ever Used Smokeless Tobacco? Never Used Smokeless Tobacco [id number] Information not available 04/17/2022 Sex: Female Functional Status None recorded. Mental Status None recorded. Family History Relationship Description Onset Age of this Age Resolved Age Notes LastModified by Organization Details LastModified Time Mother Malignant tumor of breast [id number] Not available 04/17/2022 02:42:58 Mother Hypertensive disorder [id number] [id number] Not available 04/17/2022 02:42:58 Sister Malignant tumor of pancreas [id number] [id number] Not available 04/17/2022 02:42:58 Sister History of thyroid disorder [id number] Not available 04/17/2022 02:42:59 Father Alzheimer's disease [id number] [id number] Not available 04/17/2022 02:42:59 Medical History Condition Response HIGH CHOLESTEROL / HYPERLIPIDEMIA Y Other # 2 Y SURGERY Y SKIN PROBLEMS Y DIABETES, TYPE Y PARATHYROID DISEASE Y HEADACHES/MIGRAINES Y Gynecological HistoryNo gynecological history recorded. Obstetrics History GPAL:G 0 P 0 0 0 0 Immunizations Vaccine Type Date Status Note Provider Nam e and Address Organization Details Recorded Time COVID-19, mRNA, LNP-S, PF, 100 mcg/0.5mL dose or 50 mcg/0.25mL dose 1 completed Not Available [facility] 04/17/2022 02:55:32 Influenza, split virus, quadrivalent, preservative 0 completed Not Available [facility] 04/17/2022 02:55:32 Influenza, split virus, quadrivalent, preservative 9 completed Not Available [facility] 04/17/2022 02:55:32 pneumococcal polysaccharide PPV23 9 completed Not Available [facility] 04/17/2022 02:55:32 Influenza, split virus, quadrivalent, preservative 8 completed Not Available [facility] 04/17/2022 02:55:32 zoster live 6 completed Not Available [facility] 04/17/2022 02:55:32 Influenza, split virus, quadrivalent, PF 9 completed Not Available [facility] 04/17/2022 02:55:32 Influenza, split virus, quadrivalent, PF 8 completed Not Available [facility] 04/17/2022 02:55:33 Influenza, split virus, quadrivalent, preservative 6 completed Not Available [facility] 04/17/2022 02:55:33 zoster live 6 completed Not Available [facility] 04/17/2022 02:55:33 Influenza, split virus, quadrivalent, preservative 6 completed Not Available [facility] 04/17/2022 02:55:33 Influenza, split virus, quadrivalent, preservative 5 completed Not Available [facility] 04/17/2022 02:55:33 Past Encounters Encounter ID Performer Location Encounter Start Date Encounter Closed Date Diagnosis/Indication Diagnosis SNOMED-CT Code Diagnosis ICD10 Code Diagnosis Note [id number] Kalani Buchanan MD [facility] [place] [address] [place] [address] 05/01/2020 00:00:00 05/01/2020 09:16:04 [id number] Kirstin Johnson MD [facility] Ri[facility] thakur [address] [place] [address] 08/14/2020 00:00:00 08/14/2020 11:31:11 [id number] Kalani Buchanan MD [facility] [place] [address] [place] [address] 11/03/2020 00:00:00 11/03/2020 14:25:58 [id number] Kalani Buchanan MD [facility] [place] [address] [place] [address] 04/30/2021 00:00:00 04/30/2021 12:58:10 [id number] Buchanan MD [facility] [place] [address] [place] [address] 08/06/2021 00:00:00 08/06/2021 14:00:36 [id number] Kirstin Johnson MD [facility] Family Practice Riya thakur [address] [place] [address] 08/14/2021 00:00:00 08/14/2021 10:03:42 [id number] Kalani Buchanan MD [facility] [place] [address] [place] [address] 01/17/2022 00:00:00 01/17/2022 13:48:26 [id number] Kalani Buchanan MD [facility] [place] [address] [place] [address] 07/04/2022 11:03:10 07/04/2022 11:57:27 Well controlled type 2 diabetes mellitus [id number] E11.9 a1c of 5.9% up from 5.5%- restart ozempic as she has been out for several months now. She has no hx of pancreatit is or medullary thyroid cancer and is willing to trial on a GLP1 agonist therapy. She was advised to contact clinic if she experience s any nausea, vomiting or significan t thyroid pain / swelling or abdominal pain so we can discuss and discontinu e and potentiall y look to other therapy. Will trial on ozempic 0.25 mg SQ weekly x 4 weeks then increase to 0.5 mg SQ weekly with largest meal of that day as tolerated. continue metformin for insulin sensitizat ion. Mixed hyperlipidemia [id number] E78.2 continue zetia and vascepa as she is out. Screening mammography [id number] Z12.31 this was entered in error- had a mammogram done a few months ago so not due for mammogram at this time. Screening for malignant neoplasm of colon [id number] Z12.11 refer to gastroente rology as patient due for colonoscop y. Spent up to 25 minutes preparing to see the patient (eg, review of tests), obtaining and/or reviewing separately obtained history, performing a medically appropriat e examinatio n and evaluation , counseling and educating the patient, ordering medication s, tests, along with documentin g clinical informatio n in the electronic health record, marquis ramirez interpreti ng results and communicat ing results to the patient. rtc in 6 months. Patient was provided a handwritte n lab order which contains our fax number. If she chooses to go outside of the [facility] system to obtain labwork she was advised to provide our fax number and my informatio n to the lab she will be obtaining labwork from in order to have her labs properly forwarded over for me to review so there is no loss of follow up due to use of outside network. She was also advised to contact our clinic informing us that she has completed her labwork so we are aware we will need to reach out to the appropriat e laboratory to request her results be forwarded to us so I might have the ability to review and make further medical decision making in her case. She voiced understand ing. [id number] Kalani Buchanan MD [facility] [address] [place] [address] 11/15/2022 08:57:29 11/15/2022 10:18:29 Well controlled type 2 diabetes mellitus [id number] E11.9 a1c of 5.7% down from 5.9%- continue on ozempic 0.5 mg once weekly along with metformin for insulin sensitizat ion. Discussed carb counting and how to read food labels. Recommende d patient to utilize the diabetesfo [employer]) from the ADA website to help with food preparatio n as this presents ideal carb content per meal so this will make carb counting much easier for patient. Recommende d she incorporat e natural insulin corporate legal assistant s such as pears, apples, cinnamon, pop and sweet potatoes to help mobilize her endogenous insulin. Recommende d up to 150 minutes of moderate level activity/e xercise weekly. Mixed hyperlipidemia [id number] E78.2 continue zetia and vascepa as TG levels are in range. Due to high LDL levels would recommend we trial on bempedoic acid She cannot tolerate statin therapy-sh e has trialed on pravastati n, atorvastat in and rosuvastat in and had significan t myalgias and aches. Spent up to 25 minutes preparing to see the patient (eg, review of tests), obtaining and/or reviewing separately obtained history, performing a medically appropriat e examinatio n and evaluation , counseling and educating the patient, ordering medication s, tests, along with documentin g clinical informatio n in the electronic health record, independen tly interpreti ng results and communicat ing results to the patient. Patient can be followed by PCP - she/he is aware of my resignatio n and last day of November 29. If needed his/her PCP can refer patient to another endocrinol ogist in the area. All questions /concerns answered and refills necessary at visit today. Health Concerns Section Related Observation LastModified by Organization Detai ls LastModified Time None Recorded Concern Status LastModified by Organization Details LastModified Time None Recorded Advance Directives Directive None Recorded Payers Encounter Date Sequence Insurance Name Policy Number Policy Judge Covered Member ID Judge Member ID Guarantor Name 07/04/2022 1 [employer] (MED[place]ARE[place] Lentner A Meckel [id number] Sofia A Meckel 07/04/2022 2 [facility] [employer] () Lentner A Meckel [id number] Lentner A Meckel 11/15/2022 1 [employer] (MEDICARE) Sofia A Meckel [id number] Sofia A Meckel 11/15/2022 2 [facility] [employer] () Sofia A Meckel [id number] Lentner A Meckel Notes Date Note Type Note Provider Name and Address Organization Details Recorded Time 07/04/2022 text/html 66 yo female com es in for follow up in management of well controlled type 2 dm (A1c of 5.9% up from 5.5%), and mixed dyslipidemia. last seen in Jan at that time we continued ozempic 0.5 mg once weekly and metformin. we continued zetia and vascepa. she has been off ozempic for 4 months now as the pharmacy doesnt carry the ozempic or on backorder. she has gained 10 pounds back on. sugars in range on metformin monotherapy but patient with sweet cravings. TG and LDL out of range off therapy, needs refills. labs from :Glucose 90 mg/dLcr normallft fobsis934/231/56/1 23microalbumin <6 ug/mga1c of 5.9% Kalani Buchanan MD [address], [facility] [address], [place], [address], [facility] [employer] 07/04/2022 12:00:54 11/15/2022 text/html 67 yo female com es in for follow up in management of well controlled type 2 DM (A1C of 5.7% down from 5.9%), mixed dyslipidemia last seen in June at that time we continued metformin and ozempic 0.5 mg once weekly we continued zetia and icosapent. Sent for mammogram and referred to GI for colonoscopy. Her weight is stable and her energy is good. Her LDL is over goal range- she cannot tolerate statin therapy- she has had myalgias and aches with pravastatin, atorvastatin and rosuvastatin. She is on fish oil and TG are under 200 mg/dL. labs from 10/30/22:TSH of 0.317 uIU/ml234/173/55/1 44glucose 97 mg/dLCr normalLFT normalFT4 of 1.4 ng/dLmicroalbumin 9 ug/mga1c 5.7% Kalani Buchanan MD [address], [address], [place], [address], [facility] [employer] [facility] 11/15/2022 09:53:58 OBGyn Episode No OBEpisode recorded.
== END 2024-06-23 14:47 | disposition home or self-care (01) ==
LOC: ANHIMG 14:47
PROVIDERS: PCP Nurse Practitioner Adult Health; Visit Provider Nurse Practitioner Adult Health
DX: Z12.31 Encounter for screening mammogram for malignant neoplasm of breast (principal)
CPT/HCPCS: 77063; 77067

== ENCOUNTER 2024-12-23 09:44 | Outpatient (CLI) | payer MEDICARE, OTHER, SELFPAY ==
[2024-12-23 19:52] LABS: Alanine Aminotransferase 31 U/L (6-35); Albumin Level 4.9 g/dL (3.5-5.1); Alkaline Phosphatase 83 U/L (38-126); Anion Gap 6 mmol/L (4-12); Aspartate Amino Transferase 50 U/L (14-36); Bilirubin,Total 0.7 mg/dL (0.2-1.3); Blood Urea Nitrogen 15 mg/dL (7-17); Calcium 9.7 mg/dL (8.4-10.2); Carbon Dioxide 29 mmol/L (22-30); Chloride 102 mmol/L (98-107); Cholesterol 304 mg/dL (0-200); Estimated Glomerular Filt Rate > 60; Glucose 102 mg/dL (65-110); HDL Direct 64 mg/dL; Potassium 4.6 mmol/L (3.4-5.0); Sodium 137 mmol/L (137-145); Total Protein 8.0 g/dL (6.3-8.2); Triglycerides 174 mg/dL (<150)
[2024-12-23 20:18] LABS: Hemoglobin A1C 5.8 % (<5.7)
[2024-12-23 21:01] LABS: MALB Creatinine Ratio < 31.2 mg/g (0-30)
== END 2024-12-23 09:45 | disposition home or self-care (01) ==
PROVIDERS: PCP Nurse Practitioner Adult Health; Visit Provider Nurse Practitioner Adult Health
DX: E11.9 Type 2 diabetes mellitus without complications (principal)
CPT/HCPCS: 36415; 80053; 80061; 82043; 82565; 83036